=== PATIENT | male | born 1970 | race Caucasian/White ===

== ENCOUNTER 2022-03-01 13:59 | Outpatient (CLI) | payer BC, SELFPAY ==
[2022-03-01 17:10] LABS: Chloride* 102 mmol/L (96-114); Potassium* 4.6 mmol/L (3.6-5.1); Sodium* 139 mmol/L (135-149)
[2022-03-01 17:13] LABS: Alanine Aminotransferase* 15 U/L (4-50); Blood Urea Nitrogen* 22 mg/dL (7-30); Carbon Dioxide* 26 mmol/L (20-32); Creatinine* 1.3 mg/dL (0.5-1.5); Estimated Glomerular Filt Rate 66 ml/min; Glucose* 92 mg/dL (60-115)
[2022-03-01 17:14] LABS: Calcium* 9.2 mg/dL (8.4-10.6)
[2022-03-01 17:46] LABS: PSA Screen* 1.73 ng/mL (0.10-4.00)
== END 2022-03-01 14:00 | disposition home or self-care (01) ==
PROVIDERS: PCP Family Medicine; Visit Provider Family Medicine
DX: R35.0 Frequency of micturition (principal); Z12.5 Encounter for screening for malignant neoplasm of prostate
CPT/HCPCS: 80048; 84153; 84460

== ENCOUNTER 2022-03-28 08:01 | Outpatient (CLI) | payer BC, SELFPAY | END 2022-03-28 08:02 | disposition home or self-care (01) | LOC: OP CLINIC 08:03 | PROVIDERS: PCP Family Medicine; Visit Provider Surgery | DX: Z12.11 Encounter for screening for malignant neoplasm of colon (principal); K63.5 Polyp of colon; N40.0 Benign prostatic hyperplasia without lower urinary tract symptoms; Z83.71 Family history of colonic polyps | CPT/HCPCS: 45381; 45385; 88305; 99153; J1200; J2250; J3010 ==

== ENCOUNTER 2022-05-10 15:45 | Outpatient (RCR) | payer BC, SELFPAY | END 2023-01-16 23:59 | disposition home or self-care (01) | PROVIDERS: PCP Family Medicine; Visit Provider Nurse Practitioner Family | DX: G95.20 Unspecified cord compression (principal) | CPT/HCPCS: 97110; 97530; X5282 ==

== ENCOUNTER 2023-03-28 11:07 | Outpatient (CLI) | payer BC, SELFPAY | END 2023-03-28 11:08 | disposition home or self-care (01) | PROVIDERS: PCP Family Medicine; Visit Provider Family Medicine | DX: Z01.818 Encounter for other preprocedural examination (principal); Z12.5 Encounter for screening for malignant neoplasm of prostate | CPT/HCPCS: 80048; 84153 ==

== ENCOUNTER 2023-04-15 07:37 | Outpatient (CLI) | payer BC, SELFPAY ==
--- NOTE | 2023-04-15 08:47 | W.ANESCHARGE ---
Anesthesia Charges Start Date/Time Anesthesia Start Date: 04/15/23 Anesthesia Start Time: 08:35 Stop Date/Time Anesthesia Stop Date: 04/15/23 Anesthesia Stop Time: 08:59
--- NOTE | 2023-04-15 09:02 | W.ANESCHARGE ---
Anesthesia Charges Start Date/Time Anesthesia Start Date: 04/15/23 Anesthesia Start Time: 08:35 Stop Date/Time Anesthesia Stop Date: 04/15/23 Anesthesia Stop Time: 08:59
== END 2023-04-15 07:38 | disposition home or self-care (01) ==
PROVIDERS: PCP Family Medicine; Visit Provider Internal Medicine
DX: Z86.010 Personal history of colon polyps (principal)
CPT/HCPCS: 00811; 00812; 45378; J2704

== ENCOUNTER 2024-03-24 10:33 | Outpatient (CLI) | payer MEDICARE, SELFPAY ==
--- OUTSIDE RECORDS SUMMARY | 2024-03-24 10:35 | XMS_ITS | Clinical Summary ---
Author Organization [facility] Address [place], [place] [address] Care Team Providers Care Hospital Medical Assistant Name Role Phone [facility], [facility] Primary [facility] Pr ovider Allergies No known active allergies Medications No known medications Active Problems Problem Noted Date Diagnosed Date Sinus bradycardia 05/08/2021 Heavy alcohol use 05/08/2021 Tobacco abuse 05/02/2021 Acute alcohol intoxication 04/26/2021 Cervical stenosis of spinal canal 04/26/2021 History of lumbar spinal fusion 04/26/2021 Hypertension 04/26/2021 Lumbar radiculopathy 04/26/2021 Weakness of both lower extremities 04/26/2021 Cervical spinal cord compression 04/26/2021 Immunizations Name Administration Dates Next Due DTaP 10/07/1974 Dtap-5 Pertussis Antigens 10/07/1974 Inactivated Polio Vaccine 11/19/1978,10/07/1974 Polio Virus, Unspecified 11/19/1978,10/07/1974 Td (Age >=7 Years) 06/03/2019,11/19/1978 Td, Preservative Free (age >= 7 Years) 9,11/19/1978 Tdap 11/25/2008 Zoster (Shingrix-RZV, recombinant) 09/20/2021, Family History Medical History Relation Name Comments Good Health Brother COPD Father Cancer Father throat Hypertension Father Good Health Mother Seizures Other daughter with s eizure disorder Good Health Sister Relation Name Status Comments Brother Alive Father Mother Alive Other Alive Sister Alive Social History Tobacco Use Types Packs/Day Years Used Date Smoking Tobacco: Former Cigarettes 1 20 1 - 04/26/2021 Smokeless Tobacco: Never Tobacco Cessation:Ready to Q uit: Yes Alcohol Use Standard Drinks/Week Comments Not Currently 42 (1 standard drink = 0.6 oz pu re alcohol) 12 drinks per week Social Connections Answer Date Recorded Frequency of Communication with Friends and Fami ly Not on file 06/21/2021 Financial Resource Strain Answer Date R ecorded Difficulty of Paying Living Expenses Not on file 06/21/2021 Difficulty of Paying Living Expenses Not on file 06/21/2021 Sex and Gender Information Value Date Recorded Sex Assigned at Not on file Gender Identity Not on file Sexual Orientation Not on file Obstetrics History Last Filed Vital Signs Vital Sign Reading Time Taken Comments Blood Pressure 120/68 06/29/2021 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 reported TB 04-18-2022 Height 193 cm (6' 4) 04/18/2022 9:46 AM CDT Pt. reported TB 04-18-2022 Body Mass Index 24.95 04/18/2022 9:46 AM CDT Plan of Treatment Health Maintenance Due Date Last Done Comments HIV for age 15-65 1984 Hepatitis C screening for age 18-79 1987 Colonoscopy through age 75 2014 Lipids for age 45-75 2014 Depression screening for age 12+ 03/28/2017 03/28/2016 BMI (ht and wt on same day) for age 18+ 04/18/2023 04/18/2022, 06/06/2021, 04/10/2016, Additional history exists COVID-19 vaccine series ( season) 2024 09/20/2021, 12/08/2020, 11/10/2020 Influenza for age 50-64 02/29/2024 Tetanus booster 06/03/2029 06/03/2019, 10/2018, 11/25/2008, Additional history exists Tdap Completed 11/25/2008 Zoster (shingles) series for age 50+ Completed 09/20/2021, 03/23/2021 Pneumococcal series for age 6-64 Aged Out No longer eligible based on patient's age to complete this topic Medical Devices Implanted Type Area Acoustical Tile [employer] Device Identifier Shelf Expiration Date Model / Serial / Lot [id number] Matrix 1cc [place] Dbf Putty Dbm Implanted:Qty: 1 on 04/26/2021 by Bartolome Kelly MD at [facility] Explanted:at [facility] (Quantity not on file) N/A: Spine [employer] Spine/Ortho 02/01/2023 [id number] / [id number] / Endoskeleton Tc Implant 6' [id number] Implanted:Qty: 1 on 04/26/2021 by Bartolome Kelly MD at [facility] N/A: Spine 01/25/2026 [id number] / / [id number] Description:ENDOSKELETON TC IMPLANT 6' [id number] Plate Zevo 21mm I Lvl Implanted:Qty: 1 on 04/26/2021 by Bartolome Kelly MD at [facility] N/A: Spine [id number] / / Description:PLATE ZEVO 21MM I LVL Screw Zevo Reji Sd [id number] Implanted:Qty: 4 on 04/26/2021 by Bartolome Kelly MD at [facility] N/A: Spine [id number] / / Description:SCREW ZEVO REJI S D [id number] Advance Directives * Full Code (Latest Code Status on File) Date Activated Date Inactivated Comments 05/02/2021 1:24 PM 05/15/2021 12:38 PM Question Answer Comments Code Status Discussion: Other Physicia n to review on admission to [facility] * Full Code Date Activated Date Inactivated Comments 04/26/2021 12:38 PM 05/02/2021 1:16 PM Question Answer Comments Code Status Discussion: Not DiscussedPer Advance Care Plan Care Teams Hospital Medical Assistant Relationship Specialty Start Date End Date [facility], [facility] [address] [place] [address] PCP - General 10/17/08
== END 2024-03-24 10:34 | disposition home or self-care (01) ==
PROVIDERS: PCP Family Medicine; Visit Provider Family Medicine
DX: I10 Essential (primary) hypertension (principal); F10.11 Alcohol abuse, in remission
CPT/HCPCS: 80048; 80061; 80076